=== PATIENT | female | born 1990 | race Caucasian/White ===

== ENCOUNTER 2016-11-20 18:40 | Emergency (ER) | payer MEDICAID ==
[~2016-11-20] VITALS: Ht 157.5 cm; Wt 68.0 kg
[2016-11-20 19:14] LABS: LYMPH # 2.5 K/mm3 (0.7-4.5); LYMPH % 34.3 % (10-50.0)
[2016-11-20 19:20] LABS: HEMOGLOBIN 15.3 g/dL (12.2-16.2)
--- NOTE | 2016-11-20 19:51 | Emergency Room Report ---
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 N Clinical Suspician of Infection? N Mental Status: 1 - Regular (Normal Baseline) Sepsis Risk:Low Sepsis Risk Have you (or family members/close friends) recently traveled outside the [place]? N If Yes, where/when: Have you had exposure to infectious disease within the past month? N TB? Other? Specify: Comment The patient claims of chest pain for 2-3 days. She says it is in her sternal and LEFT precordial area and increases with deep breath and certain movements. She does not really feel short of breath but says she cannot take a deep breath. No cough or hemoptysis. No fever. No leg pain or swelling. No recent travel, surgery, or hospitalization. She is not on any medications, no control pills or hormones. She has had a tubal ligation. (Maggie WALLS Golden) ALLERGIES Coded Allergies: ammonia (04/14/16) Home Medications Active Scripts Hydroxyzine Pamoate (Vistaril 25MG CAP) 25 MG PO Q6HP PRN anxiety #10 CAP Prov: 04/14/16 Cyclobenzaprine Hcl (Flexeril) 10 MG PO TID #30 TAB Prov: 07/31/16 NAPROXEN (NAPROSYN 500MG TAB) 500 MG PO BIDP PRN pain #30 TAB Prov: 07/31/16 (Mabel WALLS,Rick Ferris) History Medical History General CAD? No Angina: No [place]: No Hypertension? No Hyperlipidemia? No CHF? No DVT? No PE? No COPD? No Asthma? No Anemia? No GERD? No Gastric ulcers? No GI Bleed? No Hernia? No Thyroid Problems? No Hypothyroidism? No CVA? No Seizures? No Diabetes? No Renal Insuffiency? No End Stage Renal Disease? No UTI? No Stones? No GB Disease: No Nephritic Syndrome? No Asplenia? No Hepatitis? No Sickle Cell Disease? No Arthritis? No Migraines? No Cataracts? No Glaucoma? No MRSA? No HIV? No TB? No Anxiety? Yes Depression? Yes Cancer? No More? 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 Family History Family Hx Diabetes Yes CAD Yes Hypertension Yes Hyperlipidemia Yes Cancer Yes TB No Social History Smoking Hx Smoker: Never Smoker Tobacco: No Alcohol Alcohol: No (Golden Serrano MD) Review of Systems All Other Systems Reviewed and Negative Constitutional denies diaphoresis, denies fever Respiratory denies cough, denies shortness of breath Cardiovascular chest pain, denies edema Gastrointestinal denies abdominal pain, denies nausea, denies vomiting (Golden Serrano MD) Physical Exam Vital Signs Vital Signs Date Time Temp Pulse Resp B/P Pulse O2 O2 Flow FiO2 Ox Delivery Rate 11/21 2027 74 18 127/82 100 11/20 1846 98.4 90 18 123/79 100 General Appearance no apparent distress Eye Exam - bilateral eye normal exam, bilateral eye PERRL, bilateral eye EOMI Ear, Nose, Throat hearing grossly normal, normal ENT inspection Neck normal inspection, non-tender, supple, full range of motion Respiratory Status Yes: trachea midline, chest symmetrical, non tender chest. No: respiratory distress. Lung Sounds bilateral: normal breath sounds, lungs clear. Cardiovascular normal exam, regular rate/rhythm, no peripheral edema, no gallop, no JVD, no murmur, no rub, normal peripheral pulses Peripheral Pulses Pulses normal Yes Gastrointestinal normal bowel sounds, normal exam, non tender, soft, no organomegaly Extremities non-tender, normal range of motion, normal inspection, no calf tenderness, no pedal edema Neurologic alert, normal exam, oriented x 3 Mental status normal mood/affect Skin intact, normal color, warm/dry (Golden Serrano MD) Medical Decision Making LABS/Meds/Orders Pt receiving controlled substance in ED? No Results/Orders Laboratory Tests 11/20/16 1855: Sodium 139, Potassium 3.7, Chloride 103, Carbon Dioxide 28, BUN 12, Creatinine 0.7, Estimated Creat Clear 129, Estimated GFR (MDRD) 100, Glucose 92, Calcium 8.9, Total Bilirubin 0.2, AST 9 L, ALT 26, Alkaline Phosphatase 121 H, Creatine Kinase 48, CK-MB (CK-2) Rel Index 1.0, CK and CKMB Interp < 0.5, Troponin I < 0.02, Total Protein 8.0, Albumin 4.1, Globulin 3.9 H, Albumin/ Globulin Ratio 1.1, D-Dimer < 100, WBC 7.4, RBC 5.32, Hgb 15.3, Hct 46.6, MCV 87.6, RDW 12.7, Plt Count 213, MPV 8.5, Gran % 58.4, Gran # 4.3, Lymphocytes % 34.3, Monocytes % 5.6, Eosinophils % 1.4, Basophils % 0.5, Lymphocytes # 2.5, Monocytes # 0.4, Eosinophils # 0.1, Basophils # 0.0, PUBS MCHC 32.8, MCH 28.7 Current Medication Orders Sig/Joseluis Start time Last Medication Dose Route Stop Time Status Admin Sodium Chloride 10 ML PRN PRN 11/20 1899 AC IV 11/21 1853 Orders Procedure Date/time Status D-DIMER 11/21 1947 Complete ELECTROCARDIOGRAM REQUEST 11/20 1854 Active CHEST(2 VIEWS-NOT PORTABLE) 11/20 1854 Active IV SALINE LOCK 11/20 1854 Active CBC WITH AUTO DIFF 11/20 1854 Complete CARDIAC ENZYMES 11/20 1854 Complete CHEM 12 PROFILE 11/20 1854 Complete 12 LEAD EKG-MELISA (INITIAL) 11/20 1848 Active CM/EKG CM/EKG Comments EKG interpreted by Golden Serrano MD: Rhythm: sinus Rate: 81 [place]: normal Ectopy: none Conduction: normal ST Segment Changes: none T Wave Changes: none Q Waves: none No evidence of acute ischemia or injury Normal electrocardiogram XRAY/CT/US XRAY/CT/US XRAY chest Comment Chest x-ray interpreted by Golden Serrano M.D. No infiltrate, pneumothorax, pleural effusion, or wide mediastinum. Progress - 8:11 PM: At shift change, I have discussed the patient with Dr. Monroe, who will assume care of the patient at this time. I have discussed all clinical information including history, physical and diagnostic study results. Preliminary diagnoses based on information available at this point have been recorded by me. Controlled substance administration and critical care statement are also preliminary, as of the time of handoff. (Maggie WALLS, Golden) LABS/Meds/Orders Pt receiving controlled substance in ED? No (Rick Monroe MD) Departure Departure Clinical Impression Primary Impression: Chest pain, pleuritic Condition STABLE ED Critical Care Critical Care No (Golden Serrano MD) Departure Time of Disposition 2107 Disposition DC Home or Self Care(routine) Patient Instructions DI for Pleurisy Additional Instructions use meds and see pcp for follow up Discharge Counseling Counseled pt/family regarding diagnosis, test results, medications/RX, follow up needs Prescriptions Current Visit Scripts Prednisone (Prednisone 20MG) 20 MG PO BID #10 TAB (Rick Monroe MD) at 2011 at 2139
[2016-11-20 19:59] LABS: BUN 12 mg/dL (7-18)
[2016-11-20 20:01] LABS: GFR (ESTIMATED) 100 ML/MIN (59-)
[2016-11-20 21:47] VITALS: BP 141/89
--- NOTE | 2016-11-21 09:27 | RADIOLOGY REPORT PS360 ---
CHEST(2 VIEWS-NOT PORTABLE) INDICATION: Chest pain COMPARISON: None FINDINGS: The lung [place] are well expanded and appear clear of infiltrate. The cardiomediastinal silhouette and vascularity are normal. The costophrenic angles are clear. The bony thorax is normal. IMPRESSION: Normal chest.
== END 2016-11-20 21:49 | disposition home or self-care (01) ==
LOC: ER 18:40
PROVIDERS: Emergency Medicine
DX: R07.81 Pleurodynia (principal)